=== PATIENT | male | born 1945 | race Caucasian/White ===

== ENCOUNTER 2019-11-30 16:56 | Emergency (ER) | payer MEDICARE, OTHER ==
[~2019-11-30] VITALS: Ht 172.7 cm; Wt 102.3 kg
[~2019-11-30 16:56] MED LIST: LISINOPRIL1 POW
[2019-11-30] MEDS ORDERED: ROSUVASTATIN CA20 MG PO (18:56)
[2019-11-30] MEDS ORDERED: SYNTHROID25 MCG PO (18:57)
[2019-11-30 20:06] LABS: HEMOGLOBIN 15.8 g/dL (13.5-18.0); MEAN CELL VOLUME 89 fl (78-100); MEAN CORPUSCULAR HEMOGLOBIN 30 pg (27-31); MEAN CORPUSCULAR HGB CONC 34 g/dL (33-37); MEAN PLATELET VOLUME 10.7 fl (7.4-10.4); PLATELET COUNT 147 K/mm3 (130-400); RED BLOOD COUNT 5.27 M/mm3 (4.20-5.60); RED CELL DISTRIBUTION WIDTH 13.7 % (11.5-14.5); WHITE BLOOD COUNT 3.8 K/mm3 (4.8-10.8)
[2019-11-30 20:14] LABS: ALBUMIN 4.1 g/dL (3.4-4.8)
[2019-11-30 20:15] LABS: POTASSIUM 3.9 mmol/L (3.5-5.1); SODIUM 141 mmol/L (136-145)
[2019-11-30 20:16] LABS: CALCIUM 9.2 mg/dL (8.3-10.5); LYMPHOCYTE 34 % (20-51); MONOCYTE 21 % (3-10); NEUTROPHILS 30 % (42-75)
[2019-11-30 20:17] LABS: GLUCOSE 94 mg/dL (75-110); TOTAL PROTEIN 7.1 g/dL (6.2-8.1)
[2019-11-30 20:18] LABS: CARBON DIOXIDE 25 mmol/L (23-31)
[2019-11-30 20:19] LABS: TOTAL BILIRUBIN 0.5 mg/dL (0.2-1.2)
[2019-11-30 20:22] LABS: AST-SGOT 29 U/L (5-34)
[2019-11-30 20:24] LABS: ALT/SGPT 37 U/L (0-55)
[2019-11-30 20:31] LABS: TROPONIN-I < 0.03 ng/mL (<0.030)
[2019-11-30 20:31] LABS: URINE APPEARANCE CLEAR; URINE BILIRUBIN NEGATIVE (NEGATIVE); URINE BLOOD TRACE (NEGATIVE); URINE COLOR YELLOW; URINE GLUCOSE NEGATIVE (NEGATIVE); URINE KETONE NEGATIVE (NEGATIVE); URINE LEUKOCYTE ESTERASE NEGATIVE (NEGATIVE); URINE NITRATE NEGATIVE (NEGATIVE); URINE PROTEIN(semi-quant) TRACE mg/dL (NEGATIVE); URINE UROBILINOGEN NORMAL (NORMAL)
[2019-11-30 20:32] LABS: URINE WBC 0-1 /hpf (0-3)
[2019-11-30] MEDS ORDERED: ONDANSETRON ODT8 MG PO (21:01)
[2019-11-30 21:10] VITALS: BP 121/87
== END 2019-11-30 21:10 | disposition home or self-care (01) ==
LOC: ED 16:56
PROVIDERS: Nurse Practitioner Family
DX: B34.9 Viral infection, unspecified (principal); F17.220 Nicotine dependence, chewing tobacco, uncomplicated; E78.5 Hyperlipidemia, unspecified; E03.9 Hypothyroidism, unspecified; Z79.899 Other long term (current) drug therapy; Z79.890 Hormone replacement therapy; Z79.51 Long term (current) use of inhaled steroids
CPT/HCPCS: J7030